=== PATIENT | female | born 2000 | race Native Hawaiian/Other Pacific Islander ===

== ENCOUNTER 2024-06-27 15:01 | Emergency (ER) | payer OTHER, SELFPAY ==
--- NOTE | ~2024-06-27 | XR_ITS ---
CLINICAL HISTORY: productive cough 2 view chest x-ray Comparison: None Findings: The lungs are clear. Normal size heart. No acute fracture. IMPRESSION: 1. No acute findings. This document has been electronically signed by: Bonnie Almaguer MD on 06/27/2024 16:17:01
[2024-06-27 15:38] VITALS: BP 144/93; PULSE 117; RESP 18; TEMP 37.3; O2SAT 99; BMI 27.4
--- NOTE | 2024-06-27 15:39 | ED_ITS ---
HPI - URI/Sore Throat General Chief Complaint: Upper Respiratory Symptoms Stated Complaint: uri/cough Time Seen by Provider: 06/27/24 17:38 Source: patient, RN notes reviewed and old records reviewed Mode of arrival: ambulatory Limitations: no limitations History of Present Illness ED Provider: SOFIYA MCKINLEY PA-C HPI Narrative: 23-year-old female with no significant pmhx presents to the ED today for evaluation of productive cough x2 weeks. She also reports associated sore throat, subjective fevers, and bilateral ear pain x1 week. No known sick contacts. Denies chills, dysphagia, odynophagia, drainage from the ears, hearing changes, injury or trauma, chest pain, shortness of breath, wheezing, nausea or vomiting, abdominal pain, diarrhea. Related Data Previous Rx's ?Medication ?Instructions ?Recorded amoxicillin 875 mg-potassium 1 tab PO BID 7 days #14 tabs 06/27/24 clavulanate 125 mg tablet azithromycin 250 mg tablet See Rx Instructions PO .COMPLEX #6 06/27/24 tabs benzonatate 100 mg capsule 100 mg PO BID PRN cough #20 caps 06/27/24 prednisone 20 mg tablet 20 mg PO DAILY 3 days #3 tabs 06/27/24 Allergies Allergy/AdvReac Type Severity Reaction Status Date / Time No Known Allergies Allergy Verified 06/27/24 15:40 Review of Systems Review of Systems: Constitutional: No fever, chills, fatigue, night sweats, weight changes ENT/Mouth: No hearing loss, nasal congestion, sinus pain, rhinorrhea, +sore throat, +ear pain Eyes: No eye pain, swelling, redness, vision changes, discharge Cardio: No chest pain, palpitations, [place], orthopnea, peripheral edema Pulm: No SOB, wheezing, dyspnea, hemoptysis, +productive cough GI: No nausea, vomiting, hematemesis, abdominal pain, diarrhea, constipation, hematochezia, melena : No irregular bleeding, dysuria, frequency, urgency, hesitancy, hematuria, flank pain, urinary flow changes, urinary incontinence or retention MSK: No back pain, neck pain, joint pain, myalgias Skin: No lesions, rashes Neuro: No weakness, numbness, paresthesias, LOC, dizziness, headache Psych: No anxiety/panic, depression, SI/HI, AH/VH All other systems reviewed and are negative. [facility] Past Medical History Attestation statement: The following information was validated with the patient. Source: old records reviewed and nursing notes reviewed Social History Social History Advance Directives: No Advance Directives Information Provided: No Physical Exam Vital Signs: Vital Signs: Last Vital Signs Temp 98.4 F 06/27/24 17:39 Pulse 101 H 06/27/24 17:39 Resp 18 06/27/24 17:39 BP 141/85 H 06/27/24 17:39 Pulse Ox 98 06/27/24 17:39 O2 Del Method Room Air 06/27/24 17:39 BMI result Body Mass Index 27.4 Hypertensive, tachycardic, afebrile General: Well appearing, in no acute distress. Skin: Warm, dry, intact. No rashes or lesions. Head: Normocephalic, atraumatic. EENT: Hearing is intact b/l. Conjunctiva clear. PERRLA. EOM intact. Moist mucous membranes.? Posterior oropharynx without erythema or edema. No tonsillar exudates. No peritonsillar masses. Uvula midline. Controlling secretions and speaking in complete sentences. + No pain on manipulation of left pinna or tragus. No mastoid tenderness. Left EAC without erythema, edema or discharge. TM intact, erythematous and bulging. No effusion + No pain on manipulation of right pinna or tragus. No mastoid tenderness. Right EAC without erythema, edema or discharge. TM intact, erythematous and bulging. No effusion Neck: Supple without LAD Cardiac: Chest wall symmetric. RRR Lungs: Normal respiratory effort without accessory muscle use. CTA bilaterally. No rales, rhonchi, or wheezes.? Ext: Upper and lower extremities atraumatic, without tenderness, deformity, swelling or erythema Neuro: AOx3. Normal speech. Ambulating with steady gait. Psych: Appropriate mood and affect. Responds appropriately to questions. Course Course Course Narrative: Patient tested negative for COVID, flu, RSV, strep throat. Chest x-ray does not demonstrate focal consolidation or infiltrate to suggest pneumonia. Her physical exam is concerning for bilateral otitis media. No evidence of mastoiditis. Will treat with Augmentin. Given length of patient's symptoms, will treat for bronchitis. Azithromycin, prednisone and Tessalon Perles sent to pharmacy for treatment. Patient has remained stable throughout ED visit today. Discussed worrisome signs and symptoms and when to return to the ED. All questions answered at this time. Patient is agreeable with disposition and stable for discharge. Medical Decision Making Medical Decision Making [facility] Narrative: 23-year-old female with no significant pmhx presents to the ED today for evaluation of productive cough, sore throat, subjective fevers, bilateral ear pain. Patient is tachycardic yet afebrile. She is nontoxic-appearing and in no acute distress. Lungs are CTA bilaterally. No signs of respiratory distress. Posterior oropharynx WNL. Bilateral EACs WNL. Bilateral TMs erythematous and bulging without noted effusion. Intact. No mastoid tenderness or fluctuance. Differential diagnosis includes otitis media, otitis externa, viral syndrome, bronchitis, pneumonia, strep throat. Unlikely mastoiditis, malignant otitis externa, [employer], retropharyngeal abscess, epiglottitis. Plan for viral/ strep swabs, CXR and re-evaluation. Differential Diagnosis Differential Diagnoses: The differential diagnosis associated with the presentation includes as above. Admission/Observation Not indicated Lab Data [facility] Lab Attestation statement: I reviewed the patient's lab results. as above. Labs: Lab Results 06/27/24 Range/Units 16:04 Influenza Type A (PCR) NEGATIVE (Negative) Influenza Type B (PCR) NEGATIVE (Negative) RSV RNA Qual (PCR) NEGATIVE (Negative) SARS-CoV-2 RNA (RT-PCR) NEGATIVE (Negative) S. pyogenes GrpA MARTY Negative (Negative) Independent Interpretation I performed an independent interpretation of an: Plain X-Ray Interpretation: Chest x-ray without focal consolidation or infiltrate Radiology Impression Discussion of test interpretation with radiology: I have reviewed the radiologist's reading. Radiologist Impression: Procedure(s): XR chest 2V Accession Number(s): [id number] cc: Wanda Cee; Sofiya Mckinley~ CLINICAL HISTORY: productive cough 2 view chest x-ray Comparison: None Findings: The lungs are clear. Normal size heart. No acute fracture. IMPRESSION: 1. No acute findings. This document has been electronically signed by: Bonnie Almaguer MD on 06/27/2024 16:17:01 External Record Review External record reviewed: Inpatient record Tests considered The following testing was considered but not selected: I considered obtaining imaging however no suspicion for deep tissue infection, not warranted at this time Prescription Management I considered prescription management with: Antibiotic (Azithromycin, Augmentin) and Other (Prednisone, Tessalon Perles) Social Determinants Patient?s care significantly limited by Social Determinants of Health including: Other Social Determinant of Health Critical Care Time Critical Care Time Critical Care Time: No Discharge Plan Discharge Clinical Impression: Bronchitis, Otitis media Patient Disposition: Home, Self-Care Instructions: Ear Infection (ED), Acute Bronchitis (ED) Additional Instructions: You have an inner ear infection of both ears (left worse than right). Treatment for this is with antibiotics. Augmentin is an antibiotic that has been sent to the pharmacy for treatment. Please take this twice daily for 7 days to treat your ear infection You may take Tylenol and ibuprofen at home for fevers or pain. I am also treating you for bronchitis. Azithromycin as a 2nd antibiotic that has been sent to your pharmacy. take this as prescribed over the next 5 days. Prednisone is a steroid that has been sent to your pharmacy to help with your breathing. Tessalon Perles have been sent to your pharmacy for you to take as needed for cough. Please follow up with your primary care provider. Return with new or worsening symptoms. In the case of an emergency call 911. Prescriptions: New azithromycin 250 mg tablet See Rx Instructions .ROUTE .COMPLEX Qty: 6 0RF Rx Instructions: For 250 mg dose pack: take 500 mg today (day 1), then 250 mg for 4 days (days 2-5) benzonatate 100 mg capsule 100 mg PO BID PRN (Reason: cough) Qty: 20 0RF prednisone 20 mg tablet 20 mg PO DAILY 3 Days Qty: 3 0RF amoxicillin-pot clavulanate 875-125 mg tablet 1 tab PO BID 7 Days Qty: 14 0RF Referrals: Wanda Cee PA [Primary Care Provider] - Stand Alone Forms: Work/School Release Discharge Date/Time: 06/27/24 17:58 Print Language: Bruneian
[2024-06-27 16:40] LABS: IDNOW Serial# 58CA691E; Strep A Nucleic Acid Negative (Negative)
[2024-06-27 17:15] LABS: Influenza A PCR NEGATIVE (Negative); Influenza B PCR NEGATIVE (Negative); Resp Syncy Virus RNA Qual PCR NEGATIVE (Negative); SARS COV2 PCR INHOUSE NEGATIVE (Negative)
[2024-06-27 17:39] VITALS: BP 141/85; PULSE 101; RESP 18; TEMP 36.9; O2SAT 98
[2024-06-27 17:57] VITALS: BP 141/85; PULSE 101; RESP 18; TEMP 36.9; O2SAT 98
== END 2024-06-27 17:58 | disposition home or self-care (01) ==
PROVIDERS: Physician Assistant Medical; Emergency Provider Internal Medicine; PCP Physician Assistant
DX: J40 Bronchitis, not specified as acute or chronic (principal); H66.93 Otitis media, unspecified, bilateral; J06.9 Acute upper respiratory infection, unspecified; R05.9 Cough, unspecified; J02.9 Acute pharyngitis, unspecified; H92.03 Otalgia, bilateral; R50.9 Fever, unspecified; Z03.818 Encounter for observation for suspected exposure to other biological agents ruled out
CPT/HCPCS: 0241U; 71046; 87651; 99282; 99283